=== PATIENT | male | born 1975 | race African-American/Black ===

== ENCOUNTER 2020-09-05 15:35 | Outpatient (REF) | payer OTHER, SELFPAY | END 2020-09-05 15:36 | disposition home or self-care (01) | LOC: HO.LAB 15:35 | PROVIDERS: Visit Provider Internal Medicine | DX: Z20.828 Contact with and (suspected) exposure to other viral communicable diseases (principal) | CPT/HCPCS: 87635 ==

== ENCOUNTER 2020-11-11 12:54 | Outpatient (REF) | payer OTHER, SELFPAY | END 2020-11-11 12:55 | disposition home or self-care (01) | LOC: HO.LAB 12:54 | PROVIDERS: PCP Internal Medicine; Visit Provider Internal Medicine | DX: Z20.828 Contact with and (suspected) exposure to other viral communicable diseases (principal) | CPT/HCPCS: C9803; U0003 ==

== ENCOUNTER 2021-05-04 07:47 | Emergency (ER) | payer OTHER, SELFPAY ==
--- NOTE | ~2021-05-04 | CT_ITS ---
EXAMINATION: CT LUMBAR SPINE WITHOUT CONTRAST CLINICAL INFORMATION: Chronic lower right back pain. COMPARISON: None TECHNIQUE: 2 mm thin axial and reformatted 2 mm thin sagittal and coronal images of lumbar spine were obtained without contrast. This CT examination was performed using dose optimization techniques as appropriate, variously including the following: *Automated exposure control *Adjustment of mA and/or kV according to patient size (this includes techniques or standardized protocols for targeted exams where dose is matched to indication/reason for exam; i.e. extremities or head) *Use of iterative reconstruction technique DLP; 548 mGy-cm FINDINGS: On sagittal reconstructed images there is L4-L5 and L5-S1 fusion with disc prosthesis. There are bilateral L4 and S1 screws with interconnecting rods for posterior stabilization. Rest of the disc levels, all vertebral heights and vertebral alignment is normal. No visible acute fracture, dislocation or lytic process seen The L1-L2 and L2-L3 disc levels are unremarkable. At L3-L4 disc level there is mild diffuse bulge with mild bilateral facet joint hypertrophy resulting in concentric calcinosis. The neural foramina are patent bilaterally. At L4-L5 disc level there is no significant disc bulge, herniation or spinal stenosis. The neural foramina are patent bilaterally. At L5-S1 disc level there is bilateral L5 laminectomies with widely patent spinal canal. There is mild narrowing of right neural foramina. The left neural foramina as patent. There is no acute fracture, lytic or sclerotic process. This minimal ventral spondylosis at L3-L4 disc level. CT/CT lumbar spine wo con IMPRESSION: L4-L5 and L5-S1 disc prosthesis stabilized with posterior hardware as described above. No hardware loosening seen. There is mild right neural foraminal narrowing at the L5-S1 disc level. There is concentric spinal canal stenosis at the L3-L4 disc level from combination of diffuse bulge and mild bilateral facet joint hypertrophy.
[2021-05-04 09:00] VITALS: BP 151/97; PULSE 62; RESP 16; TEMP 36.7; O2SAT 99; BMI 33.0
[2021-05-04] MEDS: Cyclobenzaprine HCl 10 MG TABLET PO (09:45)
[2021-05-04] MEDS: Ketorolac Tromethamine 30 MG/ML VIAL IM (09:45)
[2021-05-04] MEDS: oxyCODONE HCl Immed Release 5 MG TABLET 10 MG PO (09:45)
[2021-05-04] MEDS: Lidocaine 4 % Patch ADH..PATCH 1 PATCH TRANSDERMA (10:09)
--- NOTE | 2021-05-04 10:34 | ED.BACK ---
HPI - Back Pain/Injury General Chief Complaint: Back Pain/Injury Stated Complaint: back pain Time Seen by Provider: 05/04/21 09:11 Source: patient Mode of arrival: ambulatory Limitations: no limitations History of Present Illness MD elicited complaint: back pain Pertinent past history: prior back pain and back surgery Onset (ago): week(s) (One week worse today) Timing: constant and progressively worsening Severity: severe Pain scale (0-10): 10 Similar Symptoms Previously: Yes (Although mildly worse per patient) Quality: aching Location: lumbar spine and right lower back Radiation: right upper leg and right leg below the knee Exacerbating factors: movement, walking and lifting Relieving factors: none Context: turning/twisting and bending Associated symptoms: denies other symptoms Treatments prior to arrival: other (Patient is prescribed 10 mg oxycodone and is not providing any symptomatic relief) Work related injury: No Related Data Previous Rx's Medication Instructions Recorded cyclobenzaprine 10 mg PO Q8H #15 tab 05/04/21 ketorolac 10 mg PO Q8H PRN #15 tab 05/04/21 lidocaine HCl [Aspercreme 1 appl TOPICAL BID PRN #120 g 05/04/21 (lidocaine HCl)] prednisone 40 mg PO DAILY 5 Days #10 tab 05/04/21 Allergies Allergy/AdvReac Type Severity Reaction Status Date / Time No Known Allergies Allergy Unverified 08/07/20 16:48 [No Known Allergies*] Review of Systems Review of Systems: Constitutional : No trauma, No Weight loss, No Fever, No Chills, ENT/Mouth : No Hearing loss, No Ear Pain, No Nasal Congestion, No Sinus Pain, No Hoarseness, No sore throat, No Rhinorrhea, No Swallowing Difficulty Cardiovascular : No Chest Pain, No SOB Respiratory : No Cough, No Dyspnea Gastrointestinal : No Nausea, No Vomiting, No Diarrhea, No abdominal Pain, No Hematochezia, No Melena Genitourinary : No Dysuria, No Urinary Frequency, No Hematuria, No Urinary or Bowel Incontinence/retention Musculoskeletal : + Back pain, No neck pain, No joint stiffness, No joint swelling Skin : No Skin Lesions, No rash or signs of infection Neuro : No Weakness, No radiation, No Numbness, No Paresthesias, No headache, no loss of bowel or bladder incontinence, no saddle anesthesia, Focal weakness, No radiation Denies history of IV drug usage. Yes all other systems are reviewed and are negative FOR[facility]LY [facility] Past Medical History Attestation statement: The following information was validated with the patient. Surgical History Previous back surgery Social History Social History Advance Directives: No Advance Directives Information Provided: No Physical Exam Vital Signs: Vital Signs: Last Vital Signs Temp 98.0 F 05/04/21 09:00 Pulse 62 05/04/21 09:00 Resp 16 05/04/21 09:00 BP 151/97 H 05/04/21 09:00 Pulse Ox 99 05/04/21 09:00 Body Mass Index 33.0 vital signs have been reviewed as normal and appeared to be correct. Blood pressure normal. Heart rate normal. Respiration rate normal. Temperature normal. Oxygen saturation normal. Appearance: Alert. Oriented X3. No acute distress. Head: Normal external exam. Normocephalic. Atraumatic. No Cam signs noted. No raccoon eyes noted Eyes: PERRLA. EOMI. Conjunctiva and sclera normal. Eyelids normal. ENT: EAC normal. TM's Normal. Pharynx normal. Uvula midline. Moist mucous membranes. No trismus noted. No drooling noted. No muffled voice noted. Neck: Normal inspection. Neck supple. FROM. No adenopathy. Thyroid Normal. No meningeal signs. No neck mass noted. CVS: Normal heart rate and rhythm. Heart sound normal. No murmurs noted. Pulses normal throughout. Respiratory: No respiratory distress. Painless inspiration. Breath sounds normal. No wheezes/rales/rhonchi noted. Chest nontender. No accessory muscle usage noted or decreased air movement noted. Abdomen: Soft and nontender. Bowel sounds normal in all 4 quadrants. No distention noted. No organomegaly noted. No visible injury noted. Back: No CVA tenderness. Full range of motion noted. No obvious deformities, or edema. Mild para-spinal muscular tenderness from lumbar region to coccyx. Full ROM in back and lower extremities. 5/5 strength hip extension/flexion, abduction, adduction. Mild Lumbar pain with hip flexion against resistance. Straight leg raise test negative on right; Straight leg raise test negative on left; Reflexes normal ankle and knee bilaterally; EHL motor strength normal bilaterally. No rashes/lesion/induration/fluctuance or signs infection noted. Skin: Skin warm and dry. Normal skin color. Normal skin turgor. No rashes/lesions/lacerations noted. Extremities: No lower extremity edema. Extremities exhibit normal range of motion. Extremities nontender. Neuro: Oriented X 3. No motor deficit. No sensory deficit. Reflexes normal. Patient has a normal steady gait. Course Course Course Narrative: Pt c likely muscular pain, but could be herniated disc. Neuro exam shows no deficits. Not c/w AAA/epidural abscess/dissection.No high risk Hx (Incont, fever, immunosupp, recent surgery/LP, coag, signif trauma, wt loss, puls mass, hx/o Ca, TB, or IVDU) to warrant MRI today. Not c/w Pyelo/UTI/kidney stone/spinal fx. Not cauda equina syndrome. CT scan obtained if negative will DC home c meds and f/u. MDM - Back Pain/Injury Medical Records Attestation: I reviewed the patient's medical records. Imaging Data CT scan of lumbar spine without contrast: Attestation: I personally reviewed and interpreted this imaging study as follows: Radiologist's impression: FINDINGS: On sagittal reconstructed images there is L4-L5 and L5-S1 fusion with disc prosthesis. There are bilateral L4 and S1 screws with interconnecting rods for posterior stabilization. Rest of the disc levels, all vertebral heights and vertebral alignment is normal. No visible acute fracture, dislocation or lytic process seen The L1-L2 and L2-L3 disc levels are unremarkable. At L3-L4 disc level there is mild diffuse bulge with mild bilateral facet joint hypertrophy resulting in concentric calcinosis. The neural foramina are patent bilaterally. At L4-L5 disc level there is no significant disc bulge, herniation or spinal stenosis. The neural foramina are patent bilaterally. At L5-S1 disc level there is bilateral L5 laminectomies with widely patent spinal canal. There is mild narrowing of right neural foramina. The left neural foramina as patent. There is no acute fracture, lytic or sclerotic process. This minimal ventral spondylosis at L3-L4 disc level. CT/CT lumbar spine wo con IMPRESSION: L4-L5 and L5-S1 disc prosthesis stabilized with posterior hardware as described above. No hardware loosening seen. There is mild right neural foraminal narrowing at the L5-S1 disc level. There is concentric spinal canal stenosis at the L3-L4 disc level from combination of diffuse bulge and mild bilateral facet joint hypertrophy. Discharge Plan Discharge Clinical Impression: Bulging lumbar disc, Spondylosis, Lumbar radiculopathy, Strain of lumbar region Patient Disposition: Home, Self-Care Instructions: Lumbar Radiculopathy (ED), Chronic Back Pain (DC), Lower Back Exercises (ED) Additional Instructions: Continue taking your previously prescribed 10 mg oxycodone that you filled on 05/01/2021 as previously prescribed. Follow up with her primary care provider. Return if any new or worsening symptoms. Prescriptions: New cyclobenzaprine 10 mg tablet 10 mg PO Q8H Qty: 15 RF: 0 prednisone 20 mg tablet 40 mg PO DAILY 5 Days Qty: 10 RF: 0 ketorolac 10 mg tablet 10 mg PO Q8H PRN (Reason: pain) Qty: 15 RF: 0 lidocaine HCl [Aspercreme (lidocaine HCl)] 4 % cream 1 appl topical BID PRN (Reason: pain) Qty: 120 RF: 0 Referrals: Anibal Escobedo MD [Primary Care Provider] - 2 days Stand Alone Forms: Work/School Release Print Language: Portuguese
[2021-05-04 11:41] VITALS: BP 132/86; PULSE 68; RESP 16; TEMP 36.3; O2SAT 97
== END 2021-05-04 11:44 | disposition home or self-care (01) ==
PROVIDERS: Emergency Provider Emergency Medicine Emergency Medical Services; PCP Internal Medicine
DX: S39.012A Strain of muscle, fascia and tendon of lower back, initial encounter (principal); M47.26 Other spondylosis with radiculopathy, lumbar region; M51.16 Intervertebral disc disorders with radiculopathy, lumbar region; X58.XXXA Exposure to other specified factors, initial encounter; Y93.9 Activity, unspecified; Y92.9 Unspecified place or not applicable; Y99.9 Unspecified external cause status
CPT/HCPCS: 72131; 96372; 99284; J1885